=== PATIENT | female | born 1960 ===

== ENCOUNTER → 2018-12-21 | Outpatient (CLI) | payer OTHER ==
--- NOTE | 2018-12-23 16:07 | PATHOLOGY ---
[facility] Accession Number: [id number] . 01 Material submitted: . PAPILLOMA LEFT EYE . 01 Clinician provided ICD-10: D23.12 . 02 Diagnosis: Skin, left eye: - Consistent with squamous papilloma (fibroepithelial polyp), with focal reactive dermal fibrosis. LBQ/12/23/2018 . 02 Comment: There is no evidence of malignancy. (JPM/db; 12/23/2018) . 02 Electronically signed: . Zhen Rocha MD, Pathologist NPI- [id number] . 01 Gross description: . The specimen is received in formalin, labeled "Zuly Boles, papilloma left eye", is a hairbearing, anna skin measuring 0.2 cm in greatest dimension, inked black and entirely submitted in A1. ([facility]; 12/22/2018) SHS/SHS . 02 Pathologist provided ICD-10: L91.8 . 02 CPT . 203836 Specimen Comment: A courtesy copy of this report has been sent to Specimen Comment: [phone]. Specimen Comment: Report sent to [facility]formed at: [facility] [address], [place] [id number] MD Tim Herrera MD Phone: [phone] Performed at: 02 [facility] [address] [place], [place] [id number] MD Zhen Rocha MD Phone: [phone]
== END | disposition home or self-care (01) ==
LOC: SPEC 17:30
PROVIDERS: ATTEND Ophthalmology
DX: D23.121 Other benign neoplasm of skin of left upper eyelid, including canthus (principal)
CPT/HCPCS: 88304